=== PATIENT | male | born 1965 | race Caucasian/White ===

== ENCOUNTER → 2017-02-05 | Day surgery (SDC) | payer BC, OTHER ==
[2017-01-28 09:50] VITALS: BMI 41.0
[~2017-02-05] VITALS: Ht 177.8 cm; Wt 129.6 kg
[~2017-02-05] MED LIST: ASPI325T45 PO; LIDOCAINE HCL 2% 2 ML VIAL (20MG/ML) ONE; LISI40TA PO; METO-551 PO; MULTTAB58 PO; PROPOFOL IV EMULSION 10 MG/ML 20 ML VIAL IV ONE; SODIUM CHLORIDE 0.9% 500ML 500 ML IV ONE
[2017-02-05 08:54] VITALS: Ht 177.8 cm; Wt 129.6 kg
--- NOTE | 2017-02-05 10:02 | Endo History and Physical ---
History & Physical Date of Service: Feb 05, 2017. Chief Complaint: SCREENING Referring Physician: PRICE BROWN History of Present Illness 51 yo CM who presents for screening colonoscopy Past Medical History Hypertension Past Surgical History Hx Cardiac Surgery: No Hx Internal Defibrillator: No Hx Pacemaker: No Hx Abdominal Surgery: No Hx of Implantable Prosthesis: No Hx Post-Op Nausea and Vomiting: No Hx Cancer Surgery: No Hx Thoracic Surgery: No Hx Orthopedic: Yes (RT FOOT ACHILLES TENDON REPAIR X 4, LEFT KNEE ARTHROSCOPY) Hx Urinary Tract Surgery: Yes (VASECTOMY) Family History None Social History Smoking Status: Never Smoker Hx Substance Use: No Hx Alcohol Use: Yes (OCCASIONALLY) Allergies Uncoded Allergies: NARCOTICS (Allergy, Severe, severe nausea and vomiting, 02/05/17) NEVER HAD DIPRIVAN Current Medications Reported Home Medications Medications Dose Route/Sig Max Daily Dose Days Date Category Aspirin 325 Mg Tab 1 Tab PO QAM 01/28/17 Reported Multivitamin (Multiple Vitamin) 1 Tab Tab 1 Tab PO QPM 01/28/17 Reported Lopressor (Metoprolol Tartrate) 50 Mg Tab 25 Mg PO BID 01/28/17 Reported Zestril (Lisinopril) 40 Mg Tab 40 Mg PO QPM 01/28/17 Reported Vital Signs Weight (Kilograms): 129.55 Height (Feet): 5 Height (Inches): 10 Date Time Temp Pulse Resp B/P (MAP) Pulse Ox O2 Delivery O2 Flow Rate FiO2 02/05/17 09:12 37.2 66 20 171/93 (119) 96 Room Air Physical Exam General Appearance: WD/WN, no apparent distress Respiratory/Chest: Auscultation: breath sounds normal Cardiovascular: Heart Auscultation: RRR Abdomen: Bowel Sounds: normal Inspection & Palpation: soft, non-distended, no tenderness, guarding & rebound Assessment and Plan Assessment: 51 yo CM who presents for screening colonoscopy Plan: Proceed with colonoscopy.
--- NOTE | 2017-02-05 10:25 | Discharge Instructions ---
Endoscopy Patient Instructions Date / Procedure(s) Performed Feb 05, 2017. Colonoscopy Allergy Information Uncoded Allergies: NARCOTICS (Allergy, Severe, severe nausea and vomiting, 02/05/17) NEVER HAD DIPRIVAN Discharge Date / Findings Feb 05, 2017. Normal colonoscopy Medication Instructions OK to resume all medications today as prescribed Reported Home Medications Medications Dose Route/Sig Max Daily Dose Days Date Category Aspirin 325 Mg Tab 1 Tab PO QAM 01/28/17 Reported Multivitamin (Multiple Vitamin) 1 Tab Tab 1 Tab PO QPM 01/28/17 Reported Lopressor (Metoprolol Tartrate) 50 Mg Tab 25 Mg PO BID 01/28/17 Reported Zestril (Lisinopril) 40 Mg Tab 40 Mg PO QPM 01/28/17 Reported Provider Instructions Activity Restrictions - No exercising or heavy lifting for 24 hours. - Do not drink alcohol the day of the procedure. - Do not drive a car or operate machinery until the day after the procedure. - Do not make any important decisions or sign important papers in 24 hours after the procedure. Following Day: - Return to full activity which may include returning to work/school. Diet Start your diet with liquids and light foods (jello, soup, juice, toast). Then eat your usual diet if not nauseated. Treatment For Common After Affects For mild abdominal pain, bloating, or excessive gas: - Rest - Eat lightly - Lie on right side Follow-Up Information Follow-up with PRICE BROWN as scheduled Anesthesia Information What You Should Know You have had a procedure that required some medicine to reduce anxiety and discomfort. This treatment is called moderate sedation. After receiving the treatment, you may be sleepy, but you will be able to breathe on your own. The effects of the treatment may last for several hours. Follow these instructions along with Activity/Diet recommendations noted above: * Do NOT do anything where dizziness or clumsiness would be dangerous. * Rest quietly at home today, then you can be up and about tomorrow. * Have a responsible person stay with you the rest of today. * You may have had an I.V. today. If so, you may take the dressing off later today. Recommendations Call your doctor if: * Trouble breathing * Continuous vomiting for more than 24 hours * Temperature above 101 degrees * Severe abdominal pain or bloating * Pain not relieved by pain medicine ordered * There is increased drainage or redness from any incision * A large amount of rectal bleeding greater than 2-3 tablespoons. (If you had a polyp/s removed or have hemorrhoids, a small amount of blood - from the rectum is to be expected.) * You have any unanswered questions or concerns. IN THE EVENT OF A SERIOUS EMERGENCY, GO TO THE NEAREST EMERGENCY ROOM Your discharge instructions were prepared by provider Chuck Gaxiola. Patient Instructions Signature Page Zaheer Goodwin Patient (or Guardian) Signature/Date: I have read and understand the instructions given to me by my caregivers. Caregiver/RN/Doctor Signature/Date: The above-named patient and/or guardian has received patient instructions on this date. + Original Patient Signature Page (only) stays with chart. Please make copy for patient.
--- NOTE | 2017-02-05 10:27 | GI REPORT ---
Procedure Date: 02/05/2017 9:54 AM Procedure: Colonoscopy Indications: Screening for colorectal malignant neoplasm Medicines: Monitored Anesthesia Care Complications: No immediate complications. Estimated Blood Loss: Estimated blood loss: none. Procedure: Pre-Anesthesia Assessment: - Prior to the procedure, a History and Physical was performed, and patient medications and allergies were reviewed. The patient's tolerance of previous anesthesia was also reviewed. The risks and benefits of the procedure and the sedation options and risks were discussed with the patient. All questions were answered, and informed consent was obtained. Prior Anticoagulants: The patient has taken aspirin, last dose was 1 day prior to procedure. ASA Grade Assessment: II - A patient with mild systemic disease. After reviewing the risks and benefits, the patient was deemed in satisfactory condition to undergo the procedure. After I obtained informed consent, the scope was passed under direct vision. Throughout the procedure, the patient's blood pressure, pulse, and oxygen saturations were monitored continuously. The Scope was introduced through the anus and advanced to the terminal ileum. The colonoscopy was performed without difficulty. The patient tolerated the procedure well. The quality of the bowel preparation was good. The terminal ileum, ileocecal valve, appendiceal orifice, and rectum were photographed. Findings: The colon (entire examined portion) appeared normal. Impression: - The entire examined colon is normal. - No specimens collected. Recommendation: - Resume previous diet. - Continue present medications. - Repeat colonoscopy in 10 years for surveillance. - Return to primary care physician as previously scheduled. Chuck Gaxiola DO 02/05/2017 10:26:53 AM This report has been signed electronically. Note Initiated On: 02/05/2017 9:54 AM I attest to the content of the Intraoperative Record and orders documented therein, exceptions below
--- NOTE | 2017-02-05 10:42 | Anesthesiology Progress Note ---
Anesthesia Post Op Note Date & Time Feb 05, 2017 at 10:42 Vital Signs Pain Intensity: 0 Vital Signs Past 12 Hours Date Time Temp Pulse Resp B/P (MAP) Pulse Ox O2 Delivery O2 Flow Rate FiO2 02/05/17 10:37 66 20 166/96 (119) 97 Room Air 02/05/17 10:22 66 20 122/80 (94) 96 Room Air 02/05/17 09:12 37.2 66 20 171/93 (119) 96 Room Air Notes Mental Status: alert / awake / arousable, participated in evaluation Pt Amnestic to Procedure: Yes Nausea / Vomiting: adequately controlled Pain: adequately controlled Airway Patency, RR, SpO2: stable & adequate BP & HR: stable & adequate Hydration State: stable & adequate Anesthetic Complications: no major complications apparent
[2017-02-05 10:54] VITALS: BP 144/78; PULSE 60; O2SAT 97
== END | disposition home or self-care (01) ==
LOC: C.GI 08:40
PROVIDERS: ATTEND Internal Medicine
DX: Z12.11 Encounter for screening for malignant neoplasm of colon (principal); I10 Essential (primary) hypertension; Z79.82 Long term (current) use of aspirin; Z79.899 Other long term (current) drug therapy

== ENCOUNTER → 2017-04-15 | Outpatient (CLI) | payer OTHER ==
[~2017-04-15] MED LIST changes: -LIDOCAINE HCL 2% 2 ML VIAL (20MG/ML) ONE; -PROPOFOL IV EMULSION 10 MG/ML 20 ML VIAL IV ONE; -SODIUM CHLORIDE 0.9% 500ML 500 ML IV ONE
--- NOTE | 2017-04-16 05:57 | PAP/PSG TECHNICIAN REPORT ---
[facility] Shirt Finisher Polysomnogram Report Study name: None Report date: 04/16/2017 Study date: 04/15/2017 Referring Physician: PRICE MYRICK Name: BARNEY CROWDER Interpreting Physician: Shad Mayberry D.O. Date of : 1965 Shirt Finisher: MANSI Echeverria. Sex: Male Age: 51 StudyType: PSG Weight: 285 lbs Height: 51 years, Height 5' 10" Neck Circum:21in. BMI: 40.89 Medications: Albuterol, Lisinorpil 40mg, Metoprolol Tartrate 50mg, ASA 325mg, Multivitamin Patient History Study started on room air with no ETCO2 monitoring in room #6. 51 yr old male here tonight for a diagnostic psg. He snores, has unrefreshing sleep, has witnessed apnea and has HTN. His ESS=1/24. He mostly sleeps on his sides or prone. His neck circ=21inches. Parameters Monitored NPSG: E1-M2, E2-M1, Fp1-M2, Fp2-M1, F3-M2, F4-M2, F4-M1, C3-M2, C4-M2, C4-M1, O1-M2, O2-M2, O2-M1, T3-M2, T4-M1, P3-M2, P4-M1, CHIN1, CHIN2, HR, EKG, Legs, PFLOW, SNOR, FLOW, CFLOW, Tidal Volume, THOR, ABDO, SpO2, PLTH, CPRESS, ETCO2 Wave, ETCO2, pH Sleep Architecture Sleep Stages Time at Lights Off 10:40:18 PM STAGES Time (min.) TST (%) Time at Lights On 5:40:48 AM Wake 88.0 -- Total Recording Time (TRT) 420.50 min. N1 43.5 13 Total Sleep Period (TSP) 387.5 min. N2 224.5 68 Total Sleep Time (TST) 332.5min. N3 40.5 12 Awake Time 88.0 min. REM 24.0 7 Wake after Sleep Onset 55.0 min. Sleep Efficiency (SE) 79 % Sleep Onset Latency (RITA) 33.0 min. Number of Stage 1 Shifts None Awakenings 28 Stage Changes 117 Number of REM periods 5 REM 24.0 7 REM Latency 251.5 min. NREM 308.5 93 Body Position Analysis Supine Right Left Side Prone Vertical Total Sleep Time (min.) 6.2 0.0 0.0 0.00 414.3 0.0 Total Sleep Time (%) 0% 0% 0% 0 100% N/A% Total Sleep Time REM (min.) 0.0 0.0 0.0 None 24.0 0.0 Total Sleep Time NREM (min.) 0.0 0.0 0.0 None 308.5 0.0 Intermittent Wake (min.) 6.2 0.0 0.0 None 81.8 0.0 Total Sleep Period (%) 0% None None None None None Arousals Myoclonus (PLM) * Events Count Index Events Count Index Spontaneous 9 2 Events Awake (PLMW) 38 25.9 Respiratory 13 3.6 Events Asleep w/ Arousal (PLMA) 1 0.2 PLM 1 0 Events Asleep w/o Arousal (PLMS) 38 6.9 Snoring 18 3 Total Asleep 39 7.0 Total 38 7 Total 77 11 Respiratory Analysis * CA OA MA CH H RERA Total Count 0 2 0 0 62 0 64 Index 0.0 0.4 0.0 0 11.2 0 11.5 Mean Duration 0.0 21.8 0.0 0.00 25.3 0.0 25.2 Longest Duration 0.0 28.1 0.0 0.00 0.0 0.0 51.0 Respiratory Event Summary Total Supine ~Supine Right Left Prone REM NREM Apneas Count 2 N/A 2 N/A N/A 2 0 2 Index 0.4 N/A 0 N/A N/A 0 0 0 Hypopneas (4% Desat) Count 62 N/A 62 N/A N/A 62 2 60 Index 11.2 N/A 11 N/A N/A 11.2 5.0 11.7 Apneas & All Hypopneas Count 64 N/A 64 N/A N/A 64 2 62 Index 11.5 N/A 12 N/A N/A 12 5.0 12.1 Respiratory Events ([employer]+All Hyp+RERA) Count 64 N/A 64 N/A N/A 64 2 62 Index 11.5 N/A 12 N/A N/A 11.5 5.0 12.1 Respiratory Related Arousal Count 13 N/A 20 N/A N/A 20 1 19 Index 3.6 N/A 4 N/A N/A 4 3 4 Snoring Analysis Supine Right Left Prone REM NREM Total Snore duration 120.3 min Snores count N/A N/A N/A 5,077 102 4,975 5,077 Snore mean duration 1.4 Sec Snores index N/A N/A N/A 916 255.0 967.6 916.2 TST with snoring (%) 36.2% Desaturation Event Summary: Minimum %SpO2 Event Count Mean/Min/Max Duration(sec.) Desaturation Index % Time In Bed > 90 94 32.5 / 7.3 / 60.0 16.8 80.8 86 - 90 12 18.5 / 7.8 / 35.0 9.0 19.2 81 - 85 0 N/A 0.0 0.0 76 - 80 0 N/A 0.0 0.0 71 - 75 0 N/A 0.0 0.0 66 - 70 0 N/A 0.0 0.0 61 - 65 0 N/A 0.0 0.0 56 - 60 0 N/A 0.0 0.0 51 - 55 0 N/A 0.0 0.0 < 50 0 N/A 0.0 0.0 Total REM NREM Awake <50% 0.0 min. 0.0 min. 0.0 min. 0.0 min. 51 - 60% 0.0 min. 0.0 min. 0.0 min. 0.0 min. 61 - 70% 0.0 min. 0.0 min. 0.0 min. 0.0 min. 71 - 80% 0.0 min. 0.0 min. 0.0 min. 0.0 min. 81 - 90% 79.9 min. 2.5 min. 67.2 min. 10.1 min. 91 - 100% 336.1 min. 21.5 min. 240.7 min. 73.9 min. Average 92 92 92 93 Minimum SpO2 82 88 86 82 Desaturation Event Index 14.0 5.0 16.3 9.5 # Desat. Events below 89% 46 1 39 6 Time(%) with Saturation below 89% 3.9 0.1 3.1 0.8 Time(min.) with Saturation below 89% 16.3 0.3 12.8 3.2 Time (mins) REM (mins) NREM (mins) % of TST SpO2 Below 90% 79 1 N78 10.3 SpO2 Below 88% 20 0 0 2 Heart Rate Analysis Min (bpm) Max (bpm) Average (bpm) Awake 43 83 57 NREM 43 74 53 REM 43 58 51 Overall 43 74 52 Supplemental O2 Values Minimum O2 level: None Value Start Time End Time Shirt Finisher Comments Mr. Crowder slept in the prone position. No cardiac arrhythmia or PLM's noted. No bruxism noted. Snoring was noted and scored as a 4 on a scale of 1 through 5. (0=no snoring, 5=snoring loud enough to be heard through a closed door or down the hunter way). He did not use the restroom during the night. He stated that he slept worse than when at home. The final report will be interpreted and signed by a sleep physician. The completed physician report will then be placed in the patient medical record. Therapy (cm H2O) 0 TIB (min.) 420.5 TST (min.) 332.5 Sleep Onset (min.) 33.0 REM Onset From Sleep (min.) 251.5 Sleep Efficiency % 79 Wakefulness (%) 21 Wakefulness (min.) 88.0 NREM 1 (%) 13 NREM 1 (min.) 43.5 NREM 2 (%) 68 NREM 2 (min.) 224.5 NREM 3 (%) 12 NREM 3 (min.) 40.5 REM (%) 7 REM (min.) 24.0 # Arousals 38 Arousal Index 7 # Snore 5,077 Snore Index 916.2 AHI 11.5 AHI Supine N/A AHI Non-Supine 12 NREM AHI 12.1 REM AHI 5.0 RDI 11.5 # Obstructive Apnea 2 # Central Apnea 0 # Mixed Apnea 0 # Hypopneas 62 RERAs 0 Total Respiratory Events 64 Time Below SpO2 89% (min.) 13.1 Mean NREM SpO2 (%) 92 Mean REM SpO2 (%) 92 Mean Sleep SpO2 (%) 92 Min NREM SpO2 (%) 86 Min REM SpO2 (%) 88 Position Supine (min.) 6.2 Position Non-supine (min.) 332.5 LM Index Sleep 7.0 LM Index NREM 7.2 LM Index REM 5.0 Mean Heart Rate (bpm) 52 Min Heart Rate (bpm) 43
--- NOTE | 2017-04-19 07:17 | Sleep Study ---
Sleep Study Report Date of Service: 04/15/2017 Sleep Study Report Clinical data: The patient is a 51-year-old male who was referred by ELEN Wise. He has a history of snoring, observed apneas, and on refreshed sleep. His [place] score is only 1 out of a possible 24. His BMI is elevated at 40.89. The patient has a history of hypertension. This was an in-lab overnight polysomnography. Sleep architecture: The total sleep period was 387.5 minutes. The total sleep time was 332.5 minutes. The sleep efficiency was moderately reduced to 79 percent. The sleep latency was prolonged to 33 minutes. Wake after sleep onset was 55 minutes. The REM latency was prolonged to 251.5 minutes. Sleep consisted of stage N1 13 percent, stage N2 68 percent, stage N3 12 percent , stage REM 7 percent. Arousal data: The patient had a total of 38 arousals including 9 spontaneous arousals, 13 respiratory arousals, 1 PLM arousal, and 18 snoring arousals. The arousal index was 7. PLM data: The patient had a total of 39 periodic limb movements of sleep for a PLM index of 7.0. There was only 1 arousal associated with the limb movements for a PLM arousal index of 0.2. EKG: The underlying cardiac rhythm was normal sinus. The cardiac rates ranged from 43 to 74 beats per minute. The average heart rate was 52 beats per minute. Respiratory data: Patient had a total of 64 respiratory events including 2 obstructive apneas and 62 hypopneas. Hypopneas were scored according to the 4 percent desaturation rule. The longest apnea was 28.1 seconds. The mean duration of the hypopneas was 25.3 seconds. The apnea-hypopnea index was 11.5 events per hour. This reflects mild sleep apnea. Oximetry data: The average saturation was 92 percent. The minimum saturation was 82 percent. There was a total of 16.3 minutes with saturations less than 89 percent. Associate Artistic Director comments: The patient slept in the prone position. No cardiac arrhythmias noted. No bruxism noted. Snoring was noted and scored as a 4 on a scale of 1 through 5. Impressions: 1. Obstructive sleep apnea-mild Comments: The patient has mild sleep apnea as assessed by his apnea-hypopnea index of 11.5. His sleep architecture was abnormal with a significant decrease in REM sleep. There was relatively mild amount of limb movements. There were mild oxygen desaturations. These were typically transient. The patient does have a history of hypertension as a comorbidity and he has symptoms. Thus treatment is advised. Recommendations: 1. Strong consideration is given to treatment with nasal CPAP therapy. This could be accomplished by referral back for an in-lab CPAP titration study. Alternatively he could be set up with an auto CPAP device. 2. If the patient were opposed to treatment with nasal CPAP therapy, consideration could be given to treatment with an oral appliance. 3. The patient has an elevated body mass index of 40.89. A weight reduction program is advised. 4. The patient should be advised of the appropriate principles of sleep hygiene including having a regular sleep-wake schedule and allowing approximately 7.5-8 hours of sleep per night. Copies To 1: Shad Mayberry DO; Debra Ortega C.R.N.P.
== END | disposition home or self-care (01) ==
LOC: C.NEUR 20:00
PROVIDERS: ATTEND Nurse Practitioner Adult Health
DX: G47.33 Obstructive sleep apnea (adult) (pediatric) (principal)

== ENCOUNTER → 2017-07-26 | Outpatient (CLI) | payer OTHER ==
--- NOTE | 2017-07-27 06:03 | PAP/PSG TECHNICIAN REPORT ---
[facility] Stallion Manager Polysomnogram Report Study name: None Report date: 07/27/2017 Study date: 07/26/2017 Referring Physician: PRICE MYRICK Name: BARNEY CROWDER Interpreting Physician: Shad Mayberry D.O. Date of : 1965 Stallion Manager: MANSI Echeverria. Sex: Male Age: 52 StudyType: PSG PAP Weight: 285 lbs Height: 52 years, Height 5' 10" Neck Circum:21in. BMI: 40.89 Medications: Albuterol, Lisinopril 40mg, Metoprolol Tartrate 50mg, ASA 325mg, Multivitamin Patient History Study started on room air with 4cwp cpap in room 38. 52 yr old male here tonight for a new titration study. He had a diagnostic psg done here on 04/15/17 that had an AHI of 11.5. His ESS=1/24. Neck circ=21inches. Parameters Monitored NPSG: E1-M2, E2-M1, Fp1-M2, Fp2-M1, F3-M2, F4-M2, F4-M1, C3-M2, C4-M2, C4-M1, O1-M2, O2-M2, O2-M1, T3-M2, T4-M1, P3-M2, P4-M1, CHIN1, CHIN2, HR, EKG, Legs, PFLOW, SNOR, FLOW, CFLOW, Tidal Volume, THOR, ABDO, SpO2, PLTH, CPRESS, ETCO2 Wave, ETCO2, pH Sleep Architecture Sleep Stages Time at Lights Off 11:07:41 PM STAGES Time (min.) TST (%) Time at Lights On 5:43:11 AM Wake 75.5 -- Total Recording Time (TRT) 394.50 min. N1 21.5 7 Total Sleep Period (TSP) 378.0 min. N2 202.0 63 Total Sleep Time (TST) 319.0min. N3 56.5 18 Awake Time 75.5 min. REM 39.0 12 Wake after Sleep Onset 60.0 min. Sleep Efficiency (SE) 81 % Sleep Onset Latency (RITA) 16.5 min. Number of Stage 1 Shifts None Awakenings 12 Stage Changes 63 Number of REM periods 4 REM 39.0 12 REM Latency 171.0 min. NREM 280.0 88 Body Position Analysis Supine Right Left Side Prone Vertical Total Sleep Time (min.) 277.3 0.0 0.0 0.00 117.2 0.0 Total Sleep Time (%) 79% 0% 0% 0 21% N/A% Total Sleep Time REM (min.) 39.0 0.0 0.0 None 0.0 0.0 Total Sleep Time NREM (min.) 211.5 0.0 0.0 None 68.5 0.0 Intermittent Wake (min.) 26.8 0.0 0.0 None 48.7 0.0 Total Sleep Period (%) 73% None None None None None Arousals Myoclonus (PLM) * Events Count Index Events Count Index Spontaneous 5 1 Events Awake (PLMW) 32 25.4 Respiratory 3 0.8 Events Asleep w/ Arousal (PLMA) 2 0.4 PLM 2 0 Events Asleep w/o Arousal (PLMS) 20 3.8 Snoring 12 2 Total Asleep 22 4.1 Total 22 4 Total 54 8 Respiratory Analysis * CA OA MA CH H RERA Total Count 0 0 0 0 76 0 76 Index 0.0 0.0 0.0 0 14.3 0 14.3 Mean Duration 0.0 0.0 0.0 0.00 24.6 0.0 24.6 Longest Duration 0.0 0.0 0.0 0.00 0.0 0.0 70.9 Respiratory Event Summary Total Supine ~Supine Right Left Prone REM NREM Apneas Count 0 0 0 N/A N/A 0 0 0 Index 0.0 0 0 N/A N/A 0 0 0 Hypopneas (4% Desat) Count 76 56 20 N/A N/A 20 21 55 Index 14.3 13.4 18 N/A N/A 17.5 32.3 11.8 Apneas & All Hypopneas Count 76 56 20 N/A N/A 20 21 55 Index 14.3 13 18 N/A N/A 18 32.3 11.8 Respiratory Events (Inside Sales Trainer+All Hyp+RERA) Count 76 56 20 N/A N/A 20 21 55 Index 14.3 13 18 N/A N/A 17.5 32.3 11.8 Respiratory Related Arousal Count 3 56 0 N/A N/A 0 1 3 Index 0.8 1 0 N/A N/A 0 2 1 Snoring Analysis Supine Right Left Prone REM NREM Total Snore duration 72.8 min Snores count 2,021 N/A N/A 1,117 315 2,823 3,138 Snore mean duration 1.4 Sec Snores index 484 N/A N/A 978 484.6 604.9 590.2 TST with snoring (%) 22.8% Desaturation Event Summary: Minimum %SpO2 Event Count Mean/Min/Max Duration(sec.) Desaturation Index % Time In Bed > 90 135 29.1 / 10.0 / 58.5 23.8 87.5 86 - 90 7 17.9 / 10.0 / 28.8 8.7 12.3 81 - 85 1 10.8 / 10.8 / 10.8 96.0 0.2 76 - 80 0 N/A 0.0 0.0 71 - 75 0 N/A 0.0 0.0 66 - 70 0 N/A 0.0 0.0 61 - 65 0 N/A 0.0 0.0 56 - 60 0 N/A 0.0 0.0 51 - 55 0 N/A 0.0 0.0 < 50 0 N/A 0.0 0.0 Total REM NREM Awake <50% 0.0 min. 0.0 min. 0.0 min. 0.0 min. 51 - 60% 0.0 min. 0.0 min. 0.0 min. 0.0 min. 61 - 70% 0.0 min. 0.0 min. 0.0 min. 0.0 min. 71 - 80% 0.0 min. 0.0 min. 0.0 min. 0.0 min. 81 - 90% 48.8 min. 4.1 min. 42.5 min. 2.1 min. 91 - 100% 341.0 min. 34.9 min. 237.5 min. 68.7 min. Average 93 93 92 94 Minimum SpO2 81 83 85 81 Desaturation Event Index 20.8 36.9 22.3 7.2 # Desat. Events below 89% 30 5 23 2 Time(%) with Saturation below 89% 1.6 0.2 1.2 0.2 Time(min.) with Saturation below 89% 6.2 0.8 4.6 0.8 Time (mins) REM (mins) NREM (mins) % of TST SpO2 Below 90% 92 15 N77 5.2 SpO2 Below 88% 12 0 0 1 Heart Rate Analysis Min (bpm) Max (bpm) Average (bpm) Awake 31 141 56 NREM 44 65 52 REM 45 64 54 Overall 44 65 52 Supplemental O2 Values Minimum O2 level: None Value Start Time End Time Stallion Manager Comments Mr. Crowder slept in the supine and prone positions. Cardiac arrhythmia noted, please see print out. No PLM's noted. No bruxism noted. CPAP was initiated at +4 CMH2O and up-titrated to a level of +16 CMH2O, which nearly. A large Quattro Air full face mask by [employer] was used during titration. He did not use the restroom during the night. He stated that he slept better than expected. The final report will be interpreted and signed by a sleep physician. The completed physician report will then be placed in the patient medical record. Therapy Event: Therapy (cm H20) 4 5 6 8 9 11 12 13 14 16 Total Time at Pressure (min.) 24.1 6.8 24.0 24.2 13.6 46.6 25.4 27.4 14.0 188.4 TST at Pressure (min.) 7.6 6.8 8.0 24.2 12.1 16.6 24.9 27.4 14.0 177.4 # Periods 1 1 1 1 1 1 1 1 1 1 Sleep Onset (min.) 16.5 0.0 0.0 0.0 0.0 0.0 0.0 0.0 0.0 0.0 REM Onset (min.) N/A N/A N/A N/A N/A N/A N/A 22.8 0.0 0.0 Sleep Efficiency % 31 100 33 100 89 35 98 100 100 94 Wakefulness (%) 68.5 0.0 66.8 0.0 11.0 64.4 2.0 0.0 0.0 5.8 Wakefulness (min.) 16.5 0.0 16.0 0.0 1.5 30.0 0.5 0.0 0.0 11.0 NREM 1 (%) 12.5 0.0 13.9 0.7 3.7 4.3 2.0 1.8 0.0 6.1 NREM 1 (min.) 3.0 0.0 3.3 0.2 0.5 2.0 0.5 0.5 0.0 11.5 NREM 2 (%) 19.0 100.0 19.3 68.4 76.7 11.3 78.4 54.1 0.0 63.2 NREM 2 (min.) 4.6 6.8 4.6 16.6 10.4 5.2 19.9 14.8 0.0 119.0 NREM 3 (%) 0.0 0.0 0.0 31.0 8.5 20.0 17.7 27.4 0.0 14.1 NREM 3 (min.) 0.0 0.0 0.0 7.5 1.2 9.3 4.5 7.5 0.0 26.5 REM (%) 0.0 0.0 0.0 0.0 0.0 0.0 0.0 16.7 100.0 10.8 REM (min.) 0.0 0.0 0.0 0.0 0.0 0.0 0.0 4.6 14.0 20.4 # Arousals 3 1 1 0 1 1 2 1 0 12 Arousal Index 23.7 8.8 7.5 0.0 5.0 3.6 4.8 2.2 0.0 4.1 # Snore 59 134 102 443 208 224 444 378 136 1,010 Snore Index 466.8 1,183.6 768.6 1,097.0 1,032.0 810.3 1,068.5 827.4 581.1 341.7 AHI 15.8 0.0 45.2 17.3 9.9 28.9 33.7 32.8 34.2 4.7 AHI Supine N/A N/A N/A N/A N/A 44.5 33.7 32.8 34.2 4.7 AHI Non-Supine 15.8 0.0 45.2 17.3 9.9 18.3 N/A N/A N/A N/A NREM AHI 15.8 0.0 45.2 17.3 9.9 28.9 33.7 21.0 N/A 3.1 REM AHI N/A N/A N/A N/A N/A N/A N/A 91.5 34.2 17.7 RDI 15.8 0.0 45.2 17.3 9.9 28.9 33.7 32.8 34.2 4.7 # Obstructive 0 0 0 0 0 0 0 0 0 0 # Central Ap 0 0 0 0 0 0 0 0 0 0 # Mixed 0 0 0 0 0 0 0 0 0 0 # Hypopneas 2 0 6 7 2 8 14 15 8 14 RERAS 0 0 0 0 0 0 0 0 0 0 Total Respiratory Events 2 0 6 7 2 8 14 15 8 14 Time Below SpO2 89.00% (min.) 0.0 0.0 0.8 2.3 0.0 0.0 0.9 0.9 0.1 0.4 Mean NREM SpO2 (%) 92 92 92 90 92 92 92 92 N/A 93 Mean REM SpO2 (%) N/A N/A N/A N/A N/A N/A N/A 92 92 93 Mean Sleep SpO2 (%) 92 92 92 90 92 92 92 92 92 93 Min NREM SpO2 (%) 89 90 86 85 89 89 88 87 N/A 89 Min REM SpO2 (%) N/A N/A N/A N/A N/A N/A N/A 83 87 86 Position Supine (min.) 0.0 0.0 0.0 0.0 0.0 6.7 24.9 27.4 14.0 177.4 Position Non-supine (min.) 7.6 6.8 8.0 24.2 12.1 9.8 0.0 0.0 0.0 0.0 LM Index Sleep 0.0 8.8 0.0 0.0 5.0 7.2 7.2 8.8 8.5 3.0 LM Index NREM 0.0 8.8 0.0 0.0 5.0 7.2 7.2 5.3 N/A 2.7 LM Index REM N/A N/A N/A N/A N/A N/A N/A 26.1 8.5 5.9 Mean Heart Rate (bpm) 58 59 58 56 55 53 53 53 56 50 Min Heart Rate (bpm) 56 56 53 52 51 47 50 48 51 44
--- NOTE | 2017-07-31 20:22 | Sleep Study ---
Sleep Study Report Date of Service: 07/26/2017 Sleep Study Report CLINICAL DATA: The patient is a 52-year-old male with a history of snoring and observed apneas. He had a diagnostic sleep study done 04/15/2017. This showed obstructive sleep apnea with an apnea-hypopnea index of 11.5. He is referred back for a CPAP titration study. Patient's BMI is 40.89. He has a history of hypertension. SLEEP ARCHITECTURE: The total sleep period was 378 minutes. The total sleep time was 319 minutes. The sleep efficiency was mildly reduced at 81 percent. The sleep latency was 16.5 minutes. The REM latency was prolonged to 171 minutes. Sleep consisted of stage N1 7 percent, stage N2 63 percent, stage N3 18 percent, stage REM 12 percent. AROUSAL DATA: The patient had a total of 22 arousals including 5 spontaneous arousals, 3 respiratory arousals, 2 PLM arousals, and 12 snoring arousals. The arousal index was 4. PLM DATA: The patient had a total of 22 periodic limb movements of sleep for a PLM index of 4.1. There were 2 arousals associated with limb movements for a PLM arousal index of 0.4. EKG: The underlying cardiac rhythm was normal sinus. The cardiac rates 44-65 beats per minute. There was a very occasional PVC noted. RESPIRATORY DATA: The patient's respiratory events were treated with nasal CPAP. He had a total of 76 respiratory events, all hypopneas. Hypopneas were scored according to the 4 percent desaturation rule. The mean duration of the hypopneas was 24.6. The apnea-hypopnea index for the night was 14.3. He was titrated up to a final pressure of 16 centimeters. At the final pressure his apnea-hypopnea index was 4.7. He was at that pressure for a total of 188 minutes. OXIMETRY DATA: The average saturation for the night was 93 percent. The minimum saturation was 81 percent. There was a total of 6.2 minutes with saturations less than 89 percent. WALKING DRAGLINE OILER COMMENTS: The patient slept in the supine and prone positions. Cardiac arrhythmia noted. No bruxism noted. CPAP was initiated at 4 centimeters and up titrated to a level of 16 centimeters. A large [employer] Quattro air fullface mask was used during the titration. He did not use the restroom during the night. He stated that he slept better than expected. IMPRESSIONS: 1. Obstructive sleep apnea-improved with nasal CPAP at 16 centimeters COMMENTS: The patient did reasonably well with nasal CPAP therapy. The sleep efficiency was mildly reduced. He had a decreased amount of REM sleep. He had relatively few arousals. At the final pressure there was a significant decrease in the frequency of the respiratory events. He did have some PVCs. RECOMMENDATIONS: 1. It is advised that the patient be treated with nasal CPAP at 16 centimeters. 2. It is advised that he be ordered a [employer] F[employer] Quattro air fullface mask size large. 3. Weight loss is advised in light of the elevation of body mass index at 40.89. 4. If possible the patient should avoid sleeping in the supine position. Typically there is more respiratory events while supine than other positions. 5. The patient should be seen in follow-up between day 31 day 90 following the initiation of CPAP therapy. Compliance data should be obtained. Copies To 1: Shad Mayberry DO; Debra Ortega C.R.N.P.
== END | disposition home or self-care (01) ==
LOC: C.NEUR 20:00
PROVIDERS: ATTEND Nurse Practitioner Adult Health
DX: G47.33 Obstructive sleep apnea (adult) (pediatric) (principal)